=== PATIENT | male | born 1975 | race Two or more races ===

== ENCOUNTER 2019-04-27 19:00 | Emergency (ER) | payer OTHER ==
[~2019-04-27] VITALS: Ht 172.7 cm; Wt 83.9 kg
[2019-04-27] MEDS ORDERED: TIVORBEX40 MG (19:31)
[2019-04-27] MEDS ORDERED: ZYLOPRIM300 MG (19:31)
== END 2019-04-27 22:44 | disposition home or self-care (01) ==
LOC: ER 19:00
DX: R42 Dizziness and giddiness (principal)

== ENCOUNTER 2019-04-29 15:51 | Outpatient (CLI) | payer OTHER ==
[~2019-04-29 15:51] MED LIST: TIVORBEX40 MG; ZYLOPRIM300 MG
== END 2019-04-29 18:00 | disposition home or self-care (01) ==
LOC: LAB 15:51
DX: M10.42 Other secondary gout, elbow (principal)